=== PATIENT | female | born 1980 | race Caucasian/White ===

== ENCOUNTER 2020-03-14 07:01 | Outpatient (CLI) | payer OTHER ==
[~2020-03-14 07:01] MED LIST: IBUP-1222 PO
== END 2020-03-14 23:59 | disposition home or self-care (01) ==
LOC: CFH 07:01
PROVIDERS: ATTEND Surgery
DX: K42.9 Umbilical hernia without obstruction or gangrene (principal)
CPT/HCPCS: 76705